=== PATIENT | male | born 1950 | race Caucasian/White ===

== ENCOUNTER 2017-12-24 19:19 | Inpatient (IN) | payer MEDICARE ==
[~2017-12-24] VITALS: Ht 172.7 cm; Wt 81.6 kg
[2017-12-24 19:55] LABS: BASOPHILS % 0.2 % (0.0-1.0); EOSINOPHILS % 0.2 % (0.0-6.0); HEMATOCRIT 42.2 % (38.2-49.6); HEMOGLOBIN 15.4 g/dL (14.0-18.0); LYMPHOCYTES # (AUTO) 0.5 (1.0-3.2); LYMPHOCYTES % 8.1 % (18.0-39.1); MEAN CORPUSCULAR HEMOGLOBIN 33.1 pg (28-32); MEAN CORPUSCULAR HGB CONC 36.5 g/dL (31-35); MEAN CORPUSCULAR VOLUME 90.8 fL (81-99); MONOCYTES # (AUTO) 0.3 (0.2-0.8); MONOCYTES % 4.7 % (4.4-11.3); NEUTROPHILS # (AUTO) 5.4 (2.1-6.9); NEUTROPHILS % 86.3 % (38.7-80.0); RED BLOOD COUNT 4.65 x10e6/uL (4.3-5.7)
[2017-12-24 19:57] LABS: PLATELET COUNT 93 x10e3/uL (140-360)
[2017-12-24 20:05] LABS: BILIRUBIN,URINE NEGATIVE (NEGATIVE); CLARITY,URINE CLOUDY (CLEAR); COLOR,URINE YELLOW (YELLOW); KETONES,URINE TRACE (NEGATIVE); LEUKOCYTE ESTERASE ,URINE TRACE (NEGATIVE); NITRITE,URINE POSITIVE (NEGATIVE); PROTEIN,URINE DIPSTICK 1+ (NEGATIVE); URINE UROBILINOGEN 1 mg/dL (0.2 - 1)
[2017-12-24 20:06] LABS: INR 1.2; PARTIAL THROMBOPLASTIN TIME 23.5 seconds (23.8-35.5); PROTHROMBIN TIME 14.3 seconds (11.9-14.5)
[2017-12-24] MEDS ORDERED: SODIUM CHLORIDE 0.9% 500ML 500 ML IV ONE (20:15)
[2017-12-24 20:17] LABS: ALBUMIN 4.5 g/dL (3.5-5.0); ALBUMIN/GLOBULIN RATIO 1.2 (0.8-2.0); CALCIUM 9.9 mg/dL (8.4-10.2); CREATININE, SERUM 1.41 mg/dL (0.72-1.25); MAGNESIUM 2.1 MG/DL (1.3-2.1)
[2017-12-24 20:17] LABS: BACTERIA,URINE MANY /HPF; WBC,URINE (MAN) 0-5 /HPF (0-5)
[2017-12-24 20:18] LABS: B-TYPE NATRIURETIC PEPTIDE2 < 10.0 pg/mL (0-100)
[2017-12-24 20:23] LABS: CREATINE KINASE MB 1.7 ng/mL (0-5.0)
[2017-12-24] MEDS ORDERED: VANCOMYCIN 1GM/NS 250 ML 250 ML IV ONE (21:00)
--- NOTE | 2017-12-24 21:18 | Diagnostic Imaging Report ---
EXAM: CHEST SINGLE (PORTABLE), AP 1 view INDICATION: Confusion, altered mental status COMPARISON: None FINDINGS: LINES/TUBES: None LUNGS: No consolidations or edema. PLEURA: No effusions or pneumothorax. HEART AND MEDIASTINUM: Normal size and contour. BONES AND SOFT TISSUES: No acute findings. Old fractured right posterior sixth rib. Chronic appearing deformity of the right proximal humerus. IMPRESSION: No acute thoracic abnormality. Signed by: Dr. Aileen Saul M.D. on 12/24/2017 9:14 PM
[2017-12-24] MEDS ORDERED: LORAZEPAM INJ 2 MG/ML VIAL IV ONE (21:30)
--- NOTE | 2017-12-24 21:44 | Diagnostic Imaging Report ---
History:Found unresponsive on ground. Comparison studies:None Technique: Axial images were obtained from the skull base to the vertex. Coronal and sagittal images reconstructed from the axial data. Intravenous contrast: None Findings: Scalp/skull: No abnormalities. Extra-axial spaces: No masses. No fluid collections. Brain sulci: Moderately prominent at the frontal convexity. Ventricles: Mild compensatory dilatation. No hydrocephalus. Parenchyma: Few hypodensities in the supratentorial white matter are small vessel ischemic changes. No masses, hemorrhage, acute or chronic cortical vascular insults. Sellar/suprasellar region: No abnormalities. Craniocervical junction: Patent foramen magnum. No Chiari one malformation. Incidental findings: Atherosclerotic calcifications in the carotid siphons and vertebral artery . Impression: No acute abnormalities. Chronic findings: 1. Moderate bifrontal volume loss, which can be seen in some dementias. 2. Mild supratentorial white matter small vessel ischemic changes. Signed by: DR Pasquale Pulido M.D. on 12/24/2017 9:40 PM
[2017-12-24] MEDS: CEFEPIME HCL 2 GM VIAL IV SCH (21:45)
[2017-12-24 21:52] LABS: AMPHETAMINES SCREEN,URINE NEGATIVE (NEGATIVE); BENZODIAZEPINES SCREEN,URINE POSITIVE (NEGATIVE); PHENCYCLIDINE SCREEN,URINE NEGATIVE (NEGATIVE)
[2017-12-24 22:07] LABS: ABG HCO3 21 mmol/L (23-28); ABG PCO2 32 mmHg (41-51); ABG PH 7.41 (7.31-7.41); ABG PO2 98 mmHg (80-105)
[2017-12-24] MEDS ORDERED: LORAZEPAM 1 MG TAB PO ONE (22:30)
[2017-12-24] MEDS ORDERED: ONDANSETRON HCL INJ 2 MG/ML VIAL IV PRN (23:00)
[2017-12-24] MEDS: FAMOTIDINE 20 MG/2 ML VIAL IV SCH (23:25)
[2017-12-25] VITALS (8 sets, daily range): BP systolic 126–155; BP diastolic 59–67
[2017-12-25] MEDS ORDERED: SODIUM CHLORIDE 0.9% 500ML 500 ML ONE (00:25)
[2017-12-25] MEDS ORDERED: SODIUM CHLORIDE 0.9% 500ML 500 ML IV ONE (00:30)
[2017-12-25] MEDS: SODIUM CHLORIDE 0.9% 1000ML 1,000 ML IV SCH ×3 (01:48→20:50)
[2017-12-25] MEDS: LORAZEPAM INJ 2 MG/ML VIAL IV PRN ×5 (01:54→20:00)
[2017-12-25 04:20] LABS: BASOPHILS % 0.2 % (0.0-1.0); EOSINOPHILS % 0.2 % (0.0-6.0); HEMATOCRIT 36.4 % (38.2-49.6); HEMOGLOBIN 13.2 g/dL (14.0-18.0); LYMPHOCYTES # (AUTO) 0.8 (1.0-3.2); LYMPHOCYTES % 16.1 % (18.0-39.1); MEAN CORPUSCULAR HEMOGLOBIN 33.2 pg (28-32); MEAN CORPUSCULAR HGB CONC 36.3 g/dL (31-35); MEAN CORPUSCULAR VOLUME 91.5 fL (81-99); MONOCYTES # (AUTO) 0.5 (0.2-0.8); MONOCYTES % 10.3 % (4.4-11.3); NEUTROPHILS # (AUTO) 3.4 (2.1-6.9); PLATELET COUNT 83 x10e3/uL (140-360); RED BLOOD COUNT 3.98 x10e6/uL (4.3-5.7)
[2017-12-25 04:50] LABS: ALANINE AMINOTRANSFERASE 40 IU/L (0-55); ALBUMIN 3.7 g/dL (3.5-5.0); ALBUMIN/GLOBULIN RATIO 1.2 (0.8-2.0); ALKALINE PHOSPHATASE 119 IU/L (40-150); ANION GAP 11.7 mmol/L (8-16); BLOOD UREA NITROGEN 13 mg/dL (7-26); BUN/CREATININE RATIO 13 (6-25); CALCIUM 8.7 mg/dL (8.4-10.2); CARBON DIOXIDE 20 mmol/L (22-29); CHLORIDE 107 mmol/L (98-107); CHOL/HDL RATIO 3.3 (3.9-4.7); CHOLESTEROL 131 MD/DL (0-199); CREATININE, SERUM 1.01 mg/dL (0.72-1.25); EST GLOMERULAR FILTRATION RATE > 60 ML/MIN (60-); GLUCOSE 95 mg/dL (74-118); HDL CHOLESTEROL 40 MG/DL (40-60); LDL CHOLESTEROL 76 MG/DL (60-130); POTASSIUM 3.7 mmol/L (3.5-5.1); SODIUM 135 mmol/L (136-145); TRIGLYCERIDES 76 MG/DL (0-149)
[2017-12-25 05:28] LABS: CREATINE KINASE MB 2.9 ng/mL (0-5.0)
[2017-12-25] MEDS: CEFEPIME HCL 2 GM VIAL IV SCH ×2 (08:43→20:51)
[2017-12-25] MEDS: ASPIRIN 81 MG ENTERIC COATED PO SCH (08:43)
[2017-12-25] MEDS ORDERED: LORAZEPAM1 MG PO (10:15)
[2017-12-25] MEDS ORDERED: LOPRESSOR25 MG PO (10:15)
[2017-12-25] MEDS: FAMOTIDINE 20 MG/2 ML VIAL IV SCH (10:28)
[2017-12-25 12:19] LABS: CREATINE KINASE MB 2.3 ng/mL (0-5.0)
[2017-12-26] VITALS: BP 126/56
[2017-12-26] MEDS: FAMOTIDINE 20 MG/2 ML VIAL IV SCH ×2 (00:13→11:34)
[2017-12-26] MEDS: LORAZEPAM INJ 2 MG/ML VIAL IV PRN ×3 (00:13→09:27)
[2017-12-26 05:22] VITALS: BP 138/58
[2017-12-26] MEDS: SODIUM CHLORIDE 0.9% 1000ML 1,000 ML IV SCH ×2 (06:44→07:19)
[2017-12-26 08:00] VITALS: BP 122/58
[2017-12-26] MEDS: ASPIRIN 81 MG ENTERIC COATED PO SCH (09:27)
[2017-12-26] MEDS: CEFEPIME HCL 2 GM VIAL IV SCH (09:27)
[2017-12-26 12:11] VITALS: BP 144/65
--- NOTE | 2017-12-26 14:48 | Consultation ---
DATE OF CONSULTATION: December 25, 2017 NEUROLOGY CONSULTATION HISTORY OF PRESENT ILLNESS: Mr. Mckee is a 67-year-old right-hand dominant man with past medical history significant for an anxiety disorder and benzodiazepine-dependence/abuse, who presented to the emergency center at [facility] on December 24, 2017 with confusion and a possible seizure. As stated above, the patient has an anxiety disorder for which she takes Ativan 2 mg by mouth 3 times daily as needed. On November 29, 2017, the patient reportedly received 120 pills of Ativan 2 mg. The patient ran out of his pills approximately 5 days prior to admission (approximately 11/2017). On the day of admission, the patient experienced a headache, dizziness, which is further described as lightheadedness, confusion, and "shaking". Mr. Mckee does not endorse loss of consciousness. He does report falling, which he attributes to slipping on a wet floor. The patient does not report tongue biting. He does endorse urinary incontinence. There was no bowel incontinence. The patient does not endorse a prior personal or family history of seizures. He does not report prior head trauma or meningitis/encephalitis. Mr. Mckee states he called an ambulance to bring him to the emergency center at [facility] for further evaluation of his symptoms. Upon arrival in the emergency center, the patient was afebrile with the blood pressure 152/77 mmHg and a pulse of 105 beats per minute. The patient's neurological examination was documented as follows: Alert. The patient is disoriented to time. Mood/affect normal. Speech normal. Cranial nerves normal (as tested). No cerebellar findings. No motor deficit. No sensory deficit. Reflexes normal. A CT of the brain without contrast was performed and did not reveal recent large territorial ischemia, hemorrhage, mass or mass effect. Mr. Mckee was admitted to [facility] for further evaluation of his symptoms. The patient has experienced similar symptoms multiple times previously. Mr. Mckee says, "I know what I feel like when I withdraw." REVIEW OF SYSTEMS: Urinary frequency, burning with urination, urinary urgency, confusion, dizziness, headache. Otherwise, a 12 point review of systems is negative. PAST MEDICAL HISTORY: The only past medical history endorsed by the patient is an anxiety disorder. However, it appears the patient has a history of hypertension as well. PAST SURGICAL HISTORY: None. PAST HOSPITALIZATIONS: Two to three years ago, the patient was hospitalized with a leg infection. FAMILY HISTORY: The patient's paternal grandparents are . Their medical histories are unknown. Mr. Mckee's maternal grandfather is . His medical history is unknown. His maternal grandmother is from natural causes. Patient's father is from emphysema. Mr. Mckee's mother is alive and healthy. The patient has one brother, who is reportedly alive and healthy. He has no children. SOCIAL HISTORY: The patient is single. He is a high school graduate. Mr. 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 The patient does not report current or prior tobacco, alcohol or recreational drug use. HOME MEDICATIONS 1. Ativan 2 mg by mouth 3 times daily as needed for anxiety. 2. Metoprolol 50 mg by mouth daily. ALLERGIES: THE PATIENT REPORTS NO KNOWN DRUG ALLERGIES. HOWEVER, HIS ELECTRONIC MEDICAL RECORD INDICATES HE IS ALLERGIC TO ACETAMINOPHEN AND PROPOXYPHENE. NO KNOWN FOOD ALLERGIES. NO KNOWN ALLERGIES TO LATEX. NO KNOWN ALLERGIES TO IODINE OR OTHER CONTRAST MATERIALS. PHYSICAL EXAMINATION VITAL SIGNS: Height 68 inches. Weight 180 pounds. BMI 27.4 kg per meter squared. Blood pressure 135/62 mmHg. Pulse 81 beats per minute. Respiratory rate 18 breaths per minute. Oxygen saturation 98% on 2 L by nasal cannula. GENERAL: The patient is awake and alert. Does not appear distressed. Overweight. HEENT: Normocephalic, atraumatic. Pupils are equal, round, and reactive to light. Moist mucous membranes. NECK: Supple. No appreciable thyromegaly. No appreciable carotid bruits. CARDIOVASCULAR: S1, S2, regular rate and rhythm. No murmurs, rubs or gallops. RESPIRATORY: Clear to auscultation bilaterally. No wheezes, rhonchi or rales. EXTREMITIES: The skin is warm and dry. No clubbing, cyanosis or edema. The posterior tibial and dorsalis pedis pulses are 1+ and symmetric. SKIN: Ecchymoses over the bilateral forearms and hands. Venous stasis changes over the bilateral forelegs distally. NEUROLOGIC Memory/Attention: The patient is awake and alert oriented to person place time, and situation. Cranial Nerves: Cranial nerve I--not tested. Cranial nerve II, III, IV, and --pupils are equal and round, react briskly to light (from 6 mm to 3 mm). Extraocular movements intact. No nystagmus. Cranial nerve V--sensation to light touch and pinprick is intact in the bilateral V1 through V3 distributions. Strength of the temporalis and masseter muscles is within normal limits. Cranial nerve VII--the face is symmetric as are all facial movements. Strength is within normal limits. Cranial nerve VIII--hearing is diminished to finger rub bilaterally. Cranial nerve IX, X--the soft palate elevates equally and symmetrically. Cranial nerve XI--normal strength of the bilateral sternocleidomastoid and trapezius muscles. Cranial nerve XII--the tongue protrudes midline and moves symmetrically from side to side. Strength: Bulk is normal. Strength is 5/5 in the bilateral deltoids, biceps, triceps, wrist flexors and extensors, finger flexors and extensors, intrinsic hand muscles, hip flexors, knee flexors and extensors, ankle dorsiflexion and plantar flexion, and intrinsic foot muscles except as follows: Strength of the right intrinsic hand muscles is 4/5 secondary to pain. Tone is normal. DTRs: Deep tendon reflexes are 1+ and symmetric at the triceps biceps, brachioradialis, patellas and Achilles. Plantar responses are flexor bilaterally. Sensation: Sensation is intact to light touch and pinprick in both arms and both legs. Cerebellar: [id number]-buvozz and heel-austin movements are intact without dysmetria or other impairment. Gait: Deferred. Speech: Spontaneous speech is normal without appreciable dysarthria or aphasia. Repetition is intact. Involuntary Movements: None. Pronator Drift: None. LABORATORY DATA: Sodium 135, potassium 3.7, chloride 107, carbon dioxide 20, anion gap 11.7, BUN 13, creatinine 1.01. Estimated GFR greater than 60, BUN to creatinine ratio 13. Glucose 95, calcium 8.7. Total bilirubin 2, AST 47, ALT 40, alkaline phosphatase 119. Total protein 6.9, albumin 3.7, globulin 3.2, albumin to globulin ratio 1.2. Lactic acid 39.4, 8.8. Creatinine kinase 118, 266, 244. CK-MB 1.70, 2.90, 2.30, troponin-I 0.004, 0.009, 0.003. B-natriuretic peptide less than 10.0. Ammonia 57. Total cholesterol 131, triglyceride 76, LDL cholesterol 76, HDL cholesterol 40. The CBC with differential and platelets reveals a white blood cell count of 4.67 with 73.0% neutrophils, 16.1% lymphocytes, 10.3% monocytes, 0.2% eosinophils, and 0.2% basophils. The hemoglobin and hematocrit are 13.2 and 36.5, respectively. The platelet count is 83. PT 14.3, INR 1.20, PTT 23.5, and arterial blood gas drawn on December 24, 2017, reveals a pH is 7.41, pCO2 of 32, pO2 of 98, bicarbonate of 21, oxygen saturation 98.0, base excess of -4.0, and FiO2 of 28. A urinalysis was significant for 1+ protein, trace ketones, 1+ blood, positive nitrites, trace leukocyte esterase, and many bacteria. A urine drug screen was positive for benzodiazepines. Acetaminophen level less than 3 and ethyl alcohol level was less than 10.0. DIAGNOSTIC STUDIES 1. Chest x-ray 12/24/2017: No acute thoracic abnormality. 2. CT of the brain without contrast 12/24/2017: On my review, there is no evidence of recent or remote large territorial ischemia, hemorrhage, mass or mass effect. There are findings compatible with [id number] chronic small vessel ischemic disease. There is diffuse cerebral atrophy, predominantly over the bilateral frontal lobes. ASSESSMENT AND PLAN: Mr. Mckee is a 67-year-old right-hand dominant man with past medical history significant for an anxiety disorder and benzodiazepine dependence/abuse, admitted to [facility] with confusion and "shaking". At present, the patient's neurological examination is nonfocal with the exception of mild weakness of the intrinsic muscles of the right hand secondary to pain. Mr. Mckee's laboratory data and other diagnostic studies have been reviewed and are documented above. As documented in the history of present illness, Mr. Mckee came to the emergency center at [facility] for evaluation of confusion and "shaking". He did experience a fall and urinary incontinence. These symptoms are suspicious for a seizure, probably from benzodiazepine withdrawal. In this instance, the confusion may have been a manifestation of the postictal phase. Mr. Mckee has a urinary tract infection as well. This could serve as a source of his encephalopathy. RECOMMENDATIONS 1. A 41 to 60-minute EEG has been ordered STAT, so the study may be performed over the December 26 hol. Follow up on those results. 2. Limit sedative/hypnotic and pain medications as these will alter the patient's sensorium. 3. Utilize environmental cues to limit the occurrence of delirium. 4. Defer treatment of the remaining medical comorbidities to the primary and other services. Thank you for this consultation. I will continue to follow this patient while he remains in the hospital. TIME SPENT: 50 minutes. Job#: [id number] CQ MTDD
[2017-12-26] MEDS ORDERED: CIPRO500 MG PO (14:51)
[2017-12-26 15:57] VITALS: BP 155/69
== END 2017-12-26 16:52 | disposition home or self-care (01) | DRG 689 ==
LOC: ER 19:19 → ERHOLD 23:05 → UNDOADMIN 23:10 → MED/SURG 12-25 00:54 → ERHOLD 12-25 00:54
PROVIDERS: ADMIT Internal Medicine; ATTEND Internal Medicine
DX: N30.00 Acute cystitis without hematuria (principal); G92 Toxic encephalopathy; F13.230 Sedative, hypnotic or anxiolytic dependence with withdrawal, uncomplicated; R56.9 Unspecified convulsions; I10 Essential (primary) hypertension; F41.9 Anxiety disorder, unspecified; B96.20 Unspecified Escherichia coli [E. coli] as the cause of diseases classified elsewhere
CPT/HCPCS: 36415; 36600; 51700; 70450; 71045; 80053; 80061; 80307; 80320; 80329; 81001; 82140; 82550; 82553; 82805; 83605; 83735; 83880; 84484; 85025; 85610; 85730; 87040; 87086; 87186; 93005; 95812; 99285; J0692; J2060; J3370; J7030; J7040